=== PATIENT | male | born 1985 | race Caucasian/White ===

== ENCOUNTER 2022-01-27 07:33 | Emergency (ER) | payer BC ==
[~2022-01-27] VITALS: Ht 177.8 cm; Wt 63.5 kg
--- NOTE | 2022-01-27 07:45 | NUR ---
TO ER BED 1, COLTON C/O RIGHT SIDE CHEST PRESSURE/DISCOMFORT "I HEAR POPPING AND BUBBLING SOUND WHEN I TAKE DEEP BREATHS", LIFTED HEAVY FURNITURE 1WK AGO, AAOX3, BREATHING EVEN AND NON LABORED, CONNECTED TO MONITOR, AWAITING MD LEDEZMA
[2022-01-27 08:10] LABS: BASOPHILS % (AUTO) 0.7 % (0.0-2.0); EOSINOPHILS % (AUTO) 1.4 % (0.0-6.0); HEMATOCRIT 41 % (39-51); HEMOGLOBIN 14.2 g/dL (13.5-17.5); LYMPHOCYTES # (AUTO) 0.8 K/uL (0.8-4.8); LYMPHOCYTES % (AUTO) 19.5 % (20.0-44.0); MEAN CORPUSCULAR HGB CONC 35 g/dl (31.0-36.0); MEAN CORPUSCULAR VOLUME 90 fL (80-96); MONOCYTES # (AUTO) 0.3 K/uL (0.1-1.30); MONOCYTES % (AUTO) 7.8 % (2.0-12.0); NEUTROPHILS # (AUTO) 2.8 K/uL (1.8-8.9); NEUTROPHILS % (AUTO) 70.6 % (43.0-81.0); PLATELET COUNT (AUTO) 181 K/uL (150-450); RED BLOOD CELL COUNT(AUTO) 4.55 MIL/uL (4.5-6.0)
--- NOTE | 2022-01-27 08:19 | NUR ---
PT TAKEN TO RADIOLOGY VIA WHEELCHAIR.
[2022-01-27 08:27] LABS: BILIRUBIN,DIRECT 0.1 mg/dL (0.0-0.2); BILIRUBIN,TOTAL 0.6 mg/dL (0.2-1.0); CALCIUM, SERUM 8.8 mg/dL (8.5-10.1); CREATININE 0.9 mg/dL (0.6-1.3); POTASSIUM 3.4 mmol/L (3.5-5.1); TOTAL PROTEIN, SERUM 7.2 g/dL (6.4-8.2)
[2022-01-27 09:10] VITALS: BP 120/67
--- NOTE | 2022-01-27 09:10 | NUR ---
Patient discharged to home in stable condition. Written and verbal after care instructions given. Patient verbalizes understanding of instruction.
== END 2022-01-27 09:12 | disposition home or self-care (01) ==
LOC: ER 07:38
DX: R07.81 Pleurodynia (principal)
CPT/HCPCS: 36415; 71100-TC; 80048-TC; 80076-TC; 83690-TC; 85025-TC